=== PATIENT | female | born 1965 | race Caucasian/White ===

== ENCOUNTER → 2017-07-09 13:18 | Outpatient (CLI) | payer OTHER, SELFPAY ==
[2017-07-09 14:22] LABS: Absolute Lymphocyte Count 2.34 X10^3/ul (0.83-4.51); Absolute Neutrophil Count 3.6 X10^3/uL (2.0-7.7); Basophil# 0.03 X10^3/uL; Basophil% 0.5 % (0-1); Eosinophils% 1.5 % (0-5); Hematocrit 43.9 % (37-47); Hemoglobin 14.2 g/dl (12.0-15.0); Lymphocyte # 2.34 X10^3/ul (4.0); Lymphocyte % 35.1 % (19-41); Mean Corp Hgb Conc 32.3 g/gl (32-36); Mean Corpuscular Hgb 30.6 pg (27.0-32.0); Mean Corpuscular Volume 94.6 fL (81-99); Mean Platelet Vol. 9.6 fl (6.2-12.0); Monocyte# 0.55 X10^3/uL; Monocyte% 8.3 % (0-10); Neutrophil # 3.64 X10^3/uL (2.7-7.7); Neutrophil % 54.6 % (47-70); POSITIVE COUNT NO; POSITIVE DIFFERENTIAL NO; POSITIVE MORPHOLOGY NO; Platelet Count 234 K/mm3 (150-450); RBC Distribution Width CV 13.6 % (11.6-14.6); RBC Distribution Width SD 47.1 fl (35.1-43.9); Red Blood Count 4.64 M/mm3 (4.2-5.4); White Blood Count 6.7 K/mm3 (4.4-11.0)
[2017-07-09 14:45] LABS: ALB/GLOB Ratio 1.1 RATIO (0.9-2.4); AST(SGOT) 20 U/L (15-37); Alanine Aminotransfer ALT/SGPT 28 U/L (13-56); Albumin, Serum 3.7 g/dL (3.2-5.0); Alkaline Phosphatase 91 U/L (45-117); Anion Gap 7 (5-15); BUN 13 mg/dL (7-18); BUN/Creat Ratio 18.8 RATIO (10-20); Calcium,Total 8.7 mg/dL (8.5-10.1); Chloride 104 mmol/L (98-107); Creatinine, Serum 0.69 mg/dL (0.55-1.02); EST Glomerular Filtration Rate 94 mL/min (>60); Est Glom Filt Rate - Afr Amer 114 mL/min (>60); Globulin 3.4 g/dL (2.2-4.2); Glucose 77 mg/dL (74-106); Potassium 4.2 mmol/L (3.5-5.1); Protein, Total 7.1 g/dL (6.4-8.2); Sodium Level 141 mmol/L (136-145)
== END ==
PROVIDERS: Family Provider Family Medicine; PCP Family Medicine; Visit Provider Internal Medicine Rheumatology
DX: M06.89 Other specified rheumatoid arthritis, multiple sites (principal); M79.7 Fibromyalgia; M18.12 Unilateral primary osteoarthritis of first carpometacarpal joint, left hand; M17.0 Bilateral primary osteoarthritis of knee; K76.0 Fatty (change of) liver, not elsewhere classified; K21.0 Gastro-esophageal reflux disease with esophagitis; J45.909 Unspecified asthma, uncomplicated; G43.809 Other migraine, not intractable, without status migrainosus; Z79.899 Other long term (current) drug therapy
CPT/HCPCS: 36415; 80053; 85025

== ENCOUNTER → 2018-03-21 09:53 | Outpatient (CLI) | payer OTHER, SELFPAY ==
--- NOTE | 2018-03-21 10:04 | MRI_ITS ---
STUDY: MRI CERVICAL SPINE WITHOUT CONTRAST REASON FOR EXAM: Female, 52 years old. Neck pain x8 months TECHNIQUE: Standardized fat and water weighted pulse sequences were obtained in the sagittal and axial planes. COMPARISON: MR cervical spine April 10, 2016 FINDINGS: Normal foramen magnum and brainstem-cervical cord junction. Normal craniovertebral junction. Normal anterior atlantoaxial articulation. Normal odontoid process. Normal cervical lordosis. Normal vertebral bodies and posterior osseous elements. C2-3: Normal endplates. Normal disc height, signal and morphology. Normal central canal and intervertebral neural foramina. C3-4: Normal endplates. Normal disc height, signal and morphology. Normal central canal and intervertebral neural foramina. 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 Central canal left neural foramen patent. C5-6: Severe narrowing of the neural foramina bilaterally due to uncinate spondylosis. Central canal patent. C6-7: Moderate narrowing of the neural foramen on the left due to uncinate spondylosis. Central canal and right neural foramen patent. C7-T1: Normal endplates. Normal disc height, signal and morphology. Normal central canal and intervertebral neural foramina. Normal cervical cord. Normal visualized soft tissue structures. MRI/Spine Cervical (Routine) IMPRESSION: Multilevel neural foraminal narrowing as above. Electronically Signed: Filipe Garcia MD at 21:44 EST , Service support ,
== END ==
PROVIDERS: Family Provider Family Medicine; PCP Family Medicine; Referring Provider Anesthesiology Pain Medicine; Visit Provider Anesthesiology Pain Medicine
DX: M54.2 Cervicalgia (principal); M79.603 Pain in arm, unspecified
CPT/HCPCS: 72141

== ENCOUNTER → 2018-05-24 15:32 | Outpatient (CLI) | payer OTHER, SELFPAY ==
--- NOTE | 2018-05-24 15:34 | RAD_ITS ---
STUDY: X-RAY - CERVICAL SPINE REASON FOR EXAM: Female, 52 years old. Neck pain. TECHNIQUE: 4 view(s) of the cervical spine were obtained including flexion and extension views. COMPARISON: Comparison is made with prior study dated August 03, 2014. FINDINGS: Normal anterior atlantoaxial articulation. Normal odontoid process. Normal cervical lordosis. Anterior spondylosis and disc space narrowing at the C4-C5 and C5-C6 levels. Disc space narrowing at the C4-C5 and C5-C6 levels. Normal visualized intervertebral neuroforamina. The soft tissue structures are unremarkable. RAD/Cerv Spine 4 or 5 Views IMPRESSION: Degenerative spurring and disc space narrowing at the C4-C5 and C5-C6 levels. Electronically Signed: Dave Cornejo MD at 13:59 EST , Service support ,
--- OUTSIDE RECORDS SUMMARY | 2018-07-26 21:37 | XMS RPT_ITS ---
:1965 Author Organization OHIP Care Team Providers Name Role Phone Ngoc Christianson Attending Unavailable Ngoc Christianson Referring Unavailable Farhana Saeed Primary Care Unavailable Minna Cantrell Attending Unavailable Farhana Saeed Referring Unavailable Minna Cantrell Attending Unavailable Minna Cantrell Referring Unavailable Farhana Saeed Primary Care Unavailable Dede Simmons Attending Unavailable Dede Simmons Referring Unavailable Farhana Saeed Primary Care Unavailable Farhana Saeed Attending Unavailable Farhana Saeed Primary Care Unavailable Farhana Saeed Attending Unavailable Farhana Saeed Primary Care Unavailable Farhana Saeed Admitting Unavailable Farhana Saeed Admitting Unavailable Farhana Saeed Attending Unavailable Farhana Saeed Primary Care Unavailable Farhana Saeed Attending Unavailable Farhana Saeed Primary Care Unavailable Farhana Saeed Admitting Unavailable Farhana Saeed Attending Unavailable Farhana Saeed Primary Care Unavailable Farhana Saeed Admitting Unavailable Farhana Saeed Primary Care Unavailable Cory Aguilera Admitting Unavailable Cory Aguilera Attending Unavailable Farhana Saeed Primary Care Unavailable Ngoc Christianson Admitting Unavailable Ngoc Christianson Attending Unavailable Farhana Saeed Attending Unavailable Farhana Saeed Primary Care Unavailable Dr. Farhana Saeed Primary Care Unavailable Dr. Farhana Saeed Primary Care Unavailable Dr. Farhana Saeed Primary Care Unavailable PROBLEMS PROBLEMS DATE TYPE CONDITION / CODE ATTENDING STATUS SOURCE 05/25/2018 Unknown M54.12 - Minna Cantrell Active [place] [facility], [facility] / M54.12(ICD-10) Repository PROCEDURES PROCEDURES No Procedure Records FoundRESULTS RESULTS ORTHOPEDIC VISIT Observed: 05/28/2018 Status: F Source: [place] REPORT 11:47 AM [facility] REPOSITORY [facility] Medicine [address] [place] [address] OFFICE VISIT Date of Service: 05/24/18 MR#: [id number] Acct: [id number] Name: CHRISTINE MCKEON Rep #: [id number] : 1965 Provider: Minna Cantrell MD Age/Sex: 52/F Location: [facility] Status: Signed Intake Intake Visit Reasons: CERVICAL HPI CERVICAL: Details: CHRISTINE MCKEON is a 52 year old RHD F here today for neck pain that she has had for 10yrs that has been increasing over the last few years. She has 50% neck pain and 50% left periscapular, anterior arm, dorsal forearm index/long/ring/small finger pain that has been present for years. She has had a C6-[address] Simmons without improvement and facet injections, which are helpful. Overall she cannot recall which injection, if any, helps her left arm pain. She states her pain is worse with turning her neck to the left and improved with shoulder abduction. She feels her left arm has been weak for years. She takes lyrica, mobic as needed and uses a butrans patch. She has had physical therapy years ago and traction therapy by a chiropractor in 01/2018. She denies difficulty with hand dexterity, gait instability or bowel or bladder issues. She has left [facility] surgery that results in some difficulty and paresethesias of her thumb region. She is retired. She has rheumatoid arthritis and is on plaquenil and arencia quarterly. 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 She socially does use nicotine. Ortho Exam Spine Neuro: Yes Clonus (none bilaterally), Spurling's (negative bilaterally), Collazo's (negative bilaterally), Babinski (downgoing bilaterally) and Light Touch Sensation (decreased in the left upper extremi) General: alert, oriented x3 Capillary Refill <2sec: Yes Palpable Pulses: 2+ dp/pt pulses bilaterally Gait: normal gait, other (able to heel and toe walk and tandem gait) Motor: strength 5/5 throughout (except 4/5 left wrist extensors per patient is chronic) Sensory Exam: other (decreased in left upper extremity) DTR's: Rt Triceps: 2+, Lt Triceps: 2+, Rt Biceps: 2+, Lt Biceps: 2+, Rt Brachioradialis: 2+, Lt Brachioradialis: 2+, Rt Patellar: 2+, Lt Patellar: 2+, Rt Ankle: 2+, Lt Ankle: 2+ Plantar Reflexes: Downgoing: bilateral Coordination: Romberg test normal, tandem gait normal SPINE TESTING CERVICAL Compression pain: Negative THORACIC LUMBAR Musculoskeletal General: Yes normal gait Cervical Spine: cervical muscular tenderness, pain with cervical ROM, cervical spinal tenderness Strength 0=absent - 5=normal Deltoid R (C5): 5, Deltoid L (C5): 5, R Bicep (C5-6): 5, L Bicep (C5-6): 5, R Wrist Extensor (C6): 5, L Wrist Extensor (C6): 4 (per patient is chronic), R Tricep (C7): 5, L Tricep (C7): 5, R Finger Flexors (C8): 5, L Finger Flexors (C8): 5, R First Dorsal Interossei (C8): 5, L First Dorsal Interossei (C8): 5, R Hip Flexor (L1-3): 5, L Hip Flexor (L1-3): 5, L Quadriceps (L2-4): 5, R Anterior Tibialis (L4-5): 5, L Anterior Tibialis (L4- 5): 5, R Hamstrings (L5-S1): 5, L Hamstrings (L5-S1): 5, GS (S1): 5, L GS (S1): 5, R Peroneals (S1): 5, L Peroneals (S1): 5 Assessment AND Plan Problems 1. Cervical radiculopathy M54.12 Plan Imaging: XR cervical spine 05/24/2018 reveals diffuse spondylosis MRI cervical spine 03/21/2018 reveals diffuse spondylosis with bilateral C5-6 foraminal stenosis and left C6-7 foraminal stenosis I/R/P: 1. neck pain 2. left arm pain and weakness, chronic 3. nicotine use 4. left [facility] surgery 5. chronic opioid use 6. RA on plaquenil and arencia Ms. Mckeon presents with neck pain and left arm pain. The natural history and course of the symptomatology of cervical radiculopathy was discussed in detail with the patient. I answered all questions regarding the mode of onset, pathophysiology, symptoms, imaging findings, treatment options (both non-operative and operative) regarding her diagnosis. Discussed C5-7 anterior cervical decompression and instrumented fusion, allograft. Counseled on nicotine cessation. Recommend physical therapy with traction. Follow up in 1 month or sooner if issues arise and rediscuss if she wishes to pursue surgery. Plan of care discussed. All questions answered. The patient verbalized understanding of the disease process and agreed to the treatment plan formulated for this visit. Orders Orders: Coding Level of Care Code Off vis,new,level 4 Diagnoses Cervical radiculopathy M54.12 05/28/18 1147 <Electronically signed by Minna Cantrell MD> Date Minna Cantrell MD Cosigner Signature: Date (if applicable) CC: Dede Simmons MD CERV SPINE 4 OR 5 Observed: 05/24/2018 Status: F Source: [place] CHRIS 3:34 PM [facility] REPOSITORY [facility] Imaging Services [facility] [place] [address] Cerv Spine 4 or 5 Views MR#: [id number] Acct: [id number] Name: CHRISTINE MCKEON Rep #: [id number] : 1965 F 52 From: Dave Cornejo MD PCP: Farhana Saeed MD Status: REG CLI Study: Cerv Spine 4 or 5 Views Date of Exam: 05/24/18 Exam# [id number] Ordering Dr: Minna Cantrell MD STUDY: X-RAY - CERVICAL SPINE REASON FOR EXAM: Female, 52 years old. Neck pain. TECHNIQUE: 4 view(s) of the cervical spine were obtained including flexion and extension views. COMPARISON: Comparison is made with prior study dated August 03, 2014. FINDINGS: Normal anterior atlantoaxial articulation. Normal odontoid process. Normal cervical lordosis. Anterior spondylosis and disc space narrowing at the C4-C5 and C5-C6 levels. Disc space narrowing at the C4- C5 and C5-C6 levels. Normal visualized intervertebral neuroforamina. The soft tissue structures are unremarkable. RAD/Cerv Spine 4 or 5 Views IMPRESSION: Degenerative spurring and disc space narrowing at the C4-C5 and C5-C6 levels. Electronically Signed: Dave Cornejo MD at 13:59 EST , Service support , CC: Farhana Saeed MD; Minna Cantrell MD Outside Machinist Apprentice: Signed SPINE CERVICAL Observed: 03/21/2018 Status: F Source: [place] (ROUTINE) 10:04 AM [facility] REPOSITORY [facility] Imaging Services [facility] [place] [address] Spine Cervical (Routine) MR#: [id number] Acct: [id number] Name: CHRISTINE MCKEON Rep #: [id number] : 1965 F 52 From: Filipe Garcia MD PCP: Farhana Saeed MD Status: REG CLI Study: Spine Cervical (Routine) Date of Exam: 03/21/18 Exam# [id number] Ordering Dr: Dede Simmons MD STUDY: MRI CERVICAL SPINE WITHOUT CONTRAST REASON FOR EXAM: Female, 52 years old. Neck pain x8 months TECHNIQUE: Standardized fat and water weighted pulse sequences were obtained in the sagittal and axial planes. COMPARISON: MR cervical spine April 10, 2016 FINDINGS: Normal foramen magnum and brainstem-cervical cord junction. Normal craniovertebral junction. Normal anterior atlantoaxial articulation. Normal odontoid process. Normal cervical lordosis. Normal vertebral bodies and posterior osseous elements. C2-3: Normal endplates. Normal disc height, signal and morphology. Normal central canal and intervertebral neural foramina. C3-4: Normal endplates. Normal disc height, signal and morphology. Normal central canal and intervertebral neural foramina. 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 Central canal left neural foramen patent. C5-6: Severe narrowing of the neural foramina bilaterally due to uncinate spondylosis. Central canal patent. C6-7: Moderate narrowing of the neural foramen on the left due to uncinate spondylosis. Central canal and right neural foramen patent. C7-T1: Normal endplates. Normal disc height, signal and morphology. Normal central canal and intervertebral neural foramina. Normal cervical cord. Normal visualized soft tissue structures. MRI/Spine Cervical (Routine) IMPRESSION: Multilevel neural foraminal narrowing as above. Electronically Signed: Filipe Garcia MD at 21:44 EST , Service support , CC: Farhana Saeed MD; Dede Simmons MD Outside Machinist Apprentice: Signed CBC W/ AUTO DIFF Collected: 12/29/2017 Status: F Source: [facility] 1:04 PM [facility] REPOSITORY TYPE CODE TESTS RESULT OUT OF RANGE REFERENCE UNITS LAB 83115083(L 3.6-11.0 E3/mcL OINC) Normal WBC 4.9 LAB 33657720(L 3.90-5.40 E6/mcL OINC) Normal RBC 4.53 LAB 93451426(L 12.0-16.0 G/DL OINC) Normal Hgb 14.1 LAB 38148746(L 36.0-48.0 % OINC) Normal Hct 42.4 LAB 10437239(L 11.5-14.5 % OINC) Normal RDW 14.4 LAB 11691909(L 27.0-31.0 pg OINC) High MCH 31.1 LAB 82461720(L 33.0-37.0 G/DL OINC) Normal MCHC 33.2 LAB 77902890(L 78.0-100.0 fL OINC) Normal MCV 93.6 LAB 48680542(L 7.4-11.0 fL OINC) Normal MPV 8.5 LAB 02573622(L 130-400 E3/mcL OINC) Normal Platelet 235 Performed By: #### [id number] #### LIZ RemHemrachel [address] [place] [address] AUTO DIFF Collected: 12/29/2017 Status: F Source: [facility] 1:04 [facility] REPOSITORY Order Comment: Order Added by Discern Expert. TYPE CODE TESTS RESULT OUT OF RANGE REFERENCE UNITS LAB 09076663(L 37.0-75.0 % OINC) Normal Neutro Auto 52.3 LAB 12774367(L 20.0-55.0 % OINC) Normal Lymph Auto 36.3 LAB 59292409(L 0.0-10.0 % OINC) Normal [place] Auto 7.9 LAB 11765410(L 0.0-11.0 % OINC) Normal Eos Auto 2.7 LAB 85076889(L 0.0-2.0 % OINC) Normal Basophil Auto 0.8 LAB 47509054(L 1.4-6.5 E3/mcL OINC) Normal Neutro 2.6 Absolute LAB 70547639(L 1.2-3.4 E3/mcL OINC) Normal Lymph Absolute 1.8 LAB 16755889(L 0.0-0.7 E3/mcL OINC) Normal [place] Absolute 0.4 LAB 29404027(L 0.0-0.7 E3/mcL OINC) Normal Eos Absolute 0.1 LAB 70499422(L 0.0-0.2 E3/mcL OINC) Normal Basophil 0.0 Absolute Performed By: #### [id number] #### LIZ [facility] [place] 8256605 [facility] Collected: 12/29/2017 Status: F Source: [facility] 1:04 PM [facility] REPOSITORY TYPE CODE TESTS RESULT OUT OF RANGE REFERENCE UNITS LAB 81431884(L 70-99 mg/dL OINC) High Glucose Lvl 111 LAB 81731088(L 7-18 mg/dL OINC) BUN Normal 13 LAB 4175286(LO 0.6-1.3 mg/dL INC) Normal Creatinine 0.7 LAB 49654745(L 8.4-10.2 mg/dL OINC) Calcium Normal Lvl 9.1 LAB 71571380(L 136-145 mEq/L OINC) Sodium Normal Lvl 142 LAB 73828412(L 3.5-5.1 mEq/L OINC) Normal Potassium Lvl 4.2 LAB 70664664(L 98-107 mEq/L OINC) Chloride Normal 104 LAB 13256130(L 24.0-30.0 mEq/L OINC) High CO2 30.4 LAB 15649303(L 42-121 Int._Unit/ OINC) L Alk Phos Normal 65 LAB 43707656(L 0.2-1.0 mg/dL OINC) Bili Normal Total 0.5 LAB 02048175(L 3.2-5.0 G/DL OINC) Albumin Normal Lvl 3.8 LAB 53724273(L 6.4-8.3 G/DL OINC) Total Normal Protein 6.5 LAB 63143292(L 10-40 Int._Unit/ OINC) L ALT Normal 20 LAB 34555968(L 10-42 Int._Unit/ OINC) L AST Normal 24 LAB 78576534(L 5.4-30.0 ratio OINC) Normal BUN/Creat Ratio 18.6 LAB 78007019(L 2.0-4.0 G/DL OINC) Globulin Normal 2.7 LAB 37553294(L 1.1-1.9 ratio OINC) A/G Normal Ratio 1.4 Performed By: #### [id number] #### LIZ [facility] [place] [address] EGFR Collected: 12/29/2017 Status: F Source: [facility] 1:04 PM [facility] REPOSITORY Order Comment: Order added by Discern Expert. TYPE CODE TESTS RESULT OUT OF RANGE REFERENCE UNITS LAB 14733570(LO mL/min/1.73 INC) m2 Normal eGFR >60 LAB 16767418(LO mL/min/1.73 INC) m2 Normal eGFR AA >60 Performed By: #### [id number] #### LIZ [facility] [place] [address] GLU FASTING Collected: 09/28/2017 Status: F Source: [facility] 8:28 AM [facility] REPOSITORY TYPE CODE TESTS RESULT OUT OF REFERENCE UNITS RANGE LAB 40519702(LO 70-99 mg/dL INC) High Glucose 102 Fasting Performed By: #### [id number] #### [place] [address] HGBA1C Collected: 09/28/2017 Status: F Source: [facility] 8:28 AM [facility] REPOSITORY TYPE CODE TESTS RESULT OUT OF RANGE REFERENCE UNITS LAB 245082913( 4.0-6.3 % LOINC) Normal Hemoglobin A1c 6.0 Performed By: #### [id number] #### LIZ Chemistry Manual Subsection [address] [place] [address] CBC W/DIFF, AUTOMATED Collected: 07/09/2017 Status: F Source: [facility] 1:24 PM [facility] REPOSITORY TYPE CODE TESTS RESULT OUT OF RANGE REFERENCE UNITS LAB L100.1000 4.4-11.0 K/mm3 Normal WBC 6.7 LAB L100.1200 4.2-5.4 M/mm3 Normal RBC 4.64 LAB L100.1300 12.0-15.0 g/dl Normal HGB 14.2 LAB L100.1400 37-47 % Normal HCT 43.9 LAB L100.1500 81-99 fL Normal MCV 94.6 LAB L100.1600 27.0-32.0 pg Normal MCH 30.6 LAB L100.1700 32-36 g/gl Normal MCHC 32.3 LAB L100.1810 11.6-14.6 % Normal RDW CV 13.6 LAB L100.1820 35.1-43.9 fl High RDW SD 47.1 LAB L100.1900 150-450 K/mm3 Normal PLT 234 LAB L100.2000 6.2-12.0 fl Normal MPV 9.6 LAB L100.2100 47-70 % Normal NEUT% 54.6 LAB L100.2200 19-41 % Normal LY% 35.1 LAB L100.2300 0-10 % Normal MONO% 8.3 LAB L100.2400 0-5 % Normal EO% 1.5 LAB L100.2500 0-1 % Normal BASO% 0.5 LAB L100.2550 0.0-0.9 % Normal IM GRAN % 0.000 Result Comment: IG% - Immature Granulocytes (promyelocytes, myelocytes and metamyelocytes) > 1% indicates that a LEFT SHIFT is Present. LAB L100.2620 2.0-7.7 X10 3/uL Normal Absolute Neut 3.6 LAB L100.2720 0.83-4.51 X10 3/ul Normal Absolute Lymph 2.34 Performed By: #### L100.0100 #### [facility] [address] [place], [place], [address] COMPREHENSIVE METABOLIC Collected: 07/09/2017 Status: F Source: [facility] 1:24 PM [facility] REPOSITORY TYPE CODE TESTS RESULT OUT OF RANGE REFERENCE UNITS LAB L501.0100 74-106 mg/dL Normal GLU 77 Result Comment: Please note revised GLUCOSE reference range effective 2017. LAB L501.1000 7-18 mg/dL Normal BUN 13 LAB L501.1100 0.55-1.02 mg/dL Normal CREAT,SERUM 0.69 Result Comment: The validity of the calculated GFR AND GFRAA in patients over 70 years has not been determined. Clinical correlation is essential. LAB L501.1110 >60 mL/min Normal EST GFR 94 Result Comment: Non- GFR Calc LAB L501.1115 >60 mL/min Normal EST GFR - AA 114 Result Comment: GFR Calc LAB L501.1300 10-20 RATIO Normal BUN/CRE 18.8 LAB L501.1500 6.4-8.2 g/dL T Normal PROT 7.1 LAB L501.1800 3.2-5.0 g/dL Normal ALB 3.7 LAB L501.1950 2.2-4.2 g/dL Normal GLOB 3.4 LAB L501.2000 0.9-2.4 RATIO Normal A/G 1.1 LAB L501.2200 8.5-10.1 mg/dL CA Normal 8.7 LAB L501.4100 15-37 U/L Normal AST 20 LAB L501.4305 45-117 U/L Normal ALK P 91 LAB L501.4405 13-56 U/L Normal ALT 28 Result Comment: Please note revised ALT reference range effective 2017. LAB L501.4600 0.20-1.00 mg/dL Normal T BILI 0.40 LAB L501.5300 136-145 mmol/L Normal NA 141 LAB L501.5600 3.5-5.1 mmol/L Normal K 4.2 LAB L501.5900 98-107 mmol/L Normal CL 104 LAB L501.6100 21.0-32.0 mmol/L Normal CO2 30.0 LAB L501.6200 5-15 Normal GAP 7 Performed By: #### L500.4050 #### [facility] [address] [place] [address]. [place], [address] ALLERGIES ALLERGIES DATE TYPE / CODE NAME / CODE REACTION SEVERITY SOURCE Drug/193281 No Known [place] 003([employer] [facility] Repository Drug/595249 Percocet 5/325 [id number] Mild [place] 003(S[facility] CT) System Repository ENCOUNTERS ENCOUNTERS ADMIT/DISCHARGE ACCOUNT NUMBER ADMITTING ENCOUNTER LOCATION SOURCE CLASS 05/24/2018 [id number] Ambulatory [facility] ding:HPRAD Repository 05/24/2018/05/24/19 [id number] Ambulatory BMSBuilding: [address] Repository 03/29/2018 [id number] Ambulatory Critical access hospital ding:Rajani Repository nt Medic 03/29/2018/03/29/20 [id number] Farhana Saeed Ambulatory [address] ding:[place] Repository nt MedicRoom: Room 1 03/21/2018 [id number] Ambulatory [facility] ding:MRI Repository 12/29/2017/12/30/[id number] ding:[facility] Repository 12/29/2017 [id number] Ambulatory [address] [place] [address] Repository 11/04/2017/11/05/19 [id number] Cory Aguilera [address] ding:[facility] EDRoom: WR Repository 11/04/2017 [id number] Ambulatory [address] [place] [address] Repository 11/02/2017/11/03/19 [id number] Farhana Saeed [address] ding:[place] Repository nt MedicRoom: Room 2 09/29/2017/09/30/19 [id number] Farhana Saeed [address] ding:[place] Repository nt MedicRoom: Room 2 09/28/2017/09/29/19 [id number] Farhana Saeed [address] ding:[facility] Repository 09/28/2017 [id number] Ambulatory [address] [place] [address] Repository 09/21/2017/09/22/[id number] ding:[place] Repository nt Medic 07/09/2017 [id number] Ambulatory [facility] ding:MTLAB Repository PAYERS PAYERS ENCOUNTER GUARANTOR PAYER SUBSCRIBER SOURCE 05/24/2018 CHRISTINE Cruz [id number] Primary RADHA DUSZDOB: [place] [facility], Insurance: [id number] [facility] [address]Wfg: [facility] Number: [facility] [id number] Repository (HP) Date:3739-04-46ATENTN[address] [address]HJ: 05/24/2018 Secondary NOT GIVENUNK Abe Insurance:SELF PAY [facility] Number: Effective Repository Date:2018-05-24 05/24/2018 CHRISTINE Anthony [id number] Primary RADHA DUSZDOB: [place] [address], Insurance:[facility] [id number] [facility] [address]Ine: EASTPolicy Number: [facility] [id number] Repository (HP) Date:2603-88-81SGLEEGBELLEVUE HOSPITAL [place], [place] [address]ZY: 05/24/2018 Secondary NOT GIVENUNK [place] Insurance:SELF PAY [facility] Number: Effective Repository Date:2018-05-24 03/29/2018 CHRISTINE Anthony RANGELB: Primary RADHA A DUSJyotsnaDOB: [place] [id number] Insurance:[facility] [id number] PGBAPolicy Number: [address] [place] [address] Repository [address]Syk: Effective [address]Rpo: Date:2018-03-29 - (HP)Tel: [phone] (HP) (WP) Name:CD:[id number] 000-0000 (WP) [address] [address]HO: 03/29/2018 CHRISTINE Anthony RANGELB: Primary RADHA A EMMAZDOB: [place] [id number] Insurance:1500 [id number] [place] [address] PGBAPolicy Number: [address] [place] [address] Repository [address]Azv: Effective [address]Gqv: Date:2017-09-29 - (HP)Tel: [phone] (HP) (WP) Name:CD:[id number] 000-0000 (WP) [facility] [place] [address]IJ: 03/21/2018 CHRISTINE [id number] Primary RADHA DUSZDOB: [place] [address] [place] [address], Insurance: [id number] [facility] [address]Arx: [facility] Number: [facility] [id number] Repository (HP) Date:6305-96-18GKQTVFBELLEVUE HOSPITAL [place], [place] [address]UE: 03/21/2018 Secondary NOT GIVENUNK [place] Insurance:SELF PAY [facility] Number: Effective Repository Date:2018-03-08 12/29/2017 CHRISTINE RANGELB: Primary RADHA A DUSZDOB: [place] Insurance:[employer] [id number] [place] [address] cy Number: Effective [address] [place] [address] Date:2017-12-29 - [address] [place] [address] Repository [address]Iue: [id number] [address]Evi: Name:[facility] ()Tel: [phone] HOSPITAL () () [place] [id number]: (wp) [phone] 12/29/2017 CHRISTINE RANGELB: Primary RADHA DUSZDOB: [place] Insurance: for [id number] [facility] Hospital PlanCommunity Health Systems Repository [address] [place] [address] Number: [id number]: [id number] Date:Plan Name:Health () 11/04/2017 CHRISTINE RANGELB: Primary RADHA A DUSZDOB: [place] Insurance:[employer] [id number] cy Number: Effective [address] [place] [address] Date:2017-11-[address] [place] [address] Repository [address]Fcl: [id number] [address]Chh: Name:[facility] (HP)Tel: [phone] [place] [address] () () [place] [id number]: () [phone] 11/04/2017 CHRISTINE TMOAS: Primary RADHA CLAIREB: [place] Insurance:[facility] [id number] [facility] Number: Repository [address] [place] [address] [id number]: Date:Plan Name:Health () 11/02/2017 CHRISTINE TOMAS: Primary RADHA A RUMADOB: [place] Insurance:1500 [id number] PGBAPolicy Number: [id number] [place] [address] Repository [address]Rxq: Effective [address]Fpa: Date:2017-11-02 - (HP)Tel: [phone] () () Name:CD:[id number] 000-0000 () [address] [place] [address]EF: 09/29/2017 CHRISTINE TOMAS: Primary RADHA A RUMADOB: [place] Insurance:1500 [id number] PGBAPolicy Number: [id number] [place] [address] Repository [address]Uwl: Effective [address]Pfy: Date:2017-09-23 - (HP)Tel: [phone] () (WP) Name:CD:[id number] 000-0000 (WP) [address] [place] [address]DZ: 09/28/2017 CHRISTINE TOMAS: Primary RADHA A RUMADOB: [place] Insurance:[employer]ARE[employer]i [id number] cy Number: Effective [address] [place] [address] Date:2017-09-28 - [address] [place] [address] Repository [address]Nbq: [id number] [address]Tel: Name:[facility] BOX (HP)Tel: [phone]) [phone] [place] [address] () () [place] [id number]: () [phone] 09/28/2017 CHRISTINE TOMAS: Primary RADHA RUMAB: [place] Insurance: for [id number] University Hospital PlanPolicy Repository [address] [place] [address] Number: [id number]: [id number] Date:Plan Name:Health () 09/21/2017 CHRISTINE TOMAS: Primary RADHA A RUMADOB: [place] Insurance:[facility] [id number] / [address] [place] [address] PGBAPolicy Number: [id number] Repository [id number]: Effective [id number]: Date:2017-03-22 - ()Tel: [phone] () (WP) Name:CD:[id number] 000-0000 (WP) [address] [place] [address]JJ: 07/09/2017 CHRISTINE Cruz [id number] Primary RADHA THOM: Abe [facility]IGIL [facility], [place]: [place] [id number] [facility] [address]: PGBAPolicy Number: [facility] [id number] Repository () Date:[id number] H[facility] [id number] [address]QI: 07/09/2017 Secondary NOT GIVENJOSH Fish Insurance:SELF PAY [facility] Number: Effective Repository Date:2017-07-09
== END ==
PROVIDERS: Family Provider Family Medicine; PCP Family Medicine; Referring Provider Orthopaedic Surgery; Visit Provider Orthopaedic Surgery
DX: M54.12 Radiculopathy, cervical region (principal)
CPT/HCPCS: 72050